=== PATIENT | female | born 1990 | race Caucasian/White ===

== ENCOUNTER 2018-01-13 15:11 | Emergency (ER) | payer SELFPAY ==
[~2018-01-13] VITALS: Ht 165.1 cm; Wt 57.3 kg
[~2018-01-13 15:11] MED LIST: TYLE3 PO
[2018-01-13 15:20] VITALS: BP 142/86; PULSE 93; RESP 18; TEMP 98.4; O2SAT 100
[2018-01-13 17:53] LABS: BILIRUBIN, URINE NEG (NEG); BLOOD, URINE NEG (NEG); GLUCOSE,URINE NEG (NEG); KETONE, URINE NEG (NEG); NITRITE,URINE NEG (NEG); PH, URINE 5.5 (5.0-8.5); URINE COLOR YELLOW (YELLW/STRAW); URINE LEUKOCYTE ESTERASE LARGE (NEG)
[2018-01-13 17:55] VITALS: BP 125/91; PULSE 83; RESP 18; O2SAT 98
[2018-01-13 17:59] LABS: BACTERIA, URINE MOD /hpf; RBC, URINE 0-3 /hpf (0-3)
[2018-01-13] MEDS ORDERED: MACR100C2 PO (18:29)
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
[2018-01-13] MEDS ORDERED: LIDOCAINE HCL 1% 50 ML VIAL IM ONE (18:30)
[2018-01-13] MEDS ORDERED: AZITHROMYCIN PWD FOR SUSP 1 GM PACKET PO ONE (18:30)
[2018-01-13 19:37] VITALS: BP 112/83
== END 2018-01-13 19:37 | disposition home or self-care (01) ==
LOC: PHED 15:11
DX: N39.0 Urinary tract infection, site not specified (principal); B96.20 Unspecified Escherichia coli [E. coli] as the cause of diseases classified elsewhere; N72 Inflammatory disease of cervix uteri; J45.909 Unspecified asthma, uncomplicated; E05.90 Thyrotoxicosis, unspecified without thyrotoxic crisis or storm; F17.200 Nicotine dependence, unspecified, uncomplicated; Z88.2 Allergy status to sulfonamides; Z88.8 Allergy status to other drugs, medicaments and biological substances
CPT/HCPCS: 81001; 84703; 87077; 87086; 87186; 87210; 87491; 87591; 96372; 99284; J0696